=== PATIENT | female | born 1975 | race Caucasian/White ===

== ENCOUNTER 2017-04-24 12:26 | Emergency (ER) | payer OTHER ==
[2017-04-24 12:35] VITALS: BP 137/85; PULSE 104; RESP 18; O2SAT 99
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
[2017-04-24] MEDS ORDERED: HYDR-3797 PO (15:36)
== END 2017-04-24 15:39 | disposition home or self-care (01) ==
LOC: SED 12:26
DX: F43.0 Acute stress reaction (principal)